=== PATIENT | female | born 1955 | race Caucasian/White ===

== ENCOUNTER 2016-12-24 07:05 | Day surgery (SDC) | payer BC ==
[~2016-12-24] VITALS: Ht 170.2 cm; Wt 70.3 kg
[~2016-12-24 07:05] MED LIST: ASPIR 8181 M1 PO; LIPITOR20 MG PO; LOPRESSOR25 MG PO; NEXIUM40 MG PO; NITROSTAT0.4 MG SL; ZANTAC150 MG PO
== END 2016-12-24 09:32 | disposition home or self-care (01) ==
LOC: PAIN 07:05 → SDC 07:45 → PAIN 09:32
PROC: 3E0T3CZ (ICD-10-PCS; principal; 2016-12-24)
DX: G58.8 Other specified mononeuropathies (principal); R07.81 Pleurodynia; I10 Essential (primary) hypertension; K21.9 Gastro-esophageal reflux disease without esophagitis; E78.5 Hyperlipidemia, unspecified; Z80.3 Family history of malignant neoplasm of breast; Z82.3 Family history of stroke; Z80.49 Family history of malignant neoplasm of other genital organs; Z82.49 Family history of ischemic heart disease and other diseases of the circulatory system; Z80.1 Family history of malignant neoplasm of trachea, bronchus and lung
CPT/HCPCS: J1030; J2250; J2405; J3010; S0020